=== PATIENT | female | born 1985 | race Caucasian/White ===

== ENCOUNTER 2017-08-01 14:20 | Emergency (ER) | payer MEDICARE ==
[2013-07-04 00:02] VITALS: BMI 40.8
[~2017-08-01 14:20] MED LIST: ACETAMINOPHEN500 M1 PO; BENADRYL25 M1 PO; MOTRIN800 MG PO; MYLANTA LIQUID355 ML PO; PERCOCET 10/3251 TA1 PO; PRENATAL COMPLE1 TAB PO
== END 2017-08-01 17:35 | disposition home or self-care (01) ==
LOC: D.ER 14:20
DX: L02.416 Cutaneous abscess of left lower limb (principal)

== ENCOUNTER 2017-12-15 11:12 | Emergency (ER) | payer MEDICARE ==
[2013-07-04 00:02] VITALS: BMI 40.8
[2017-12-15 11:53] LABS: BASOPHILS 0.2 % (0-2); HEMATOCRIT 37.6 % (36.0-48.0); HEMOGLOBIN 12.9 g/dL (12-16); IMMATURE GRANULOCYTES 0.2 % (0-5); LYMPHOCYTES 22.8 % (15-50); MCH 30.6 pg (26.0-34.0); MCHC 34.3 g/dL (31.0-37.0); MCV 89.3 fL (80.0-100.0); MEAN PLATELET VOLUME 9.6 fL (7.4-10.4); MONOCYTES 7.8 % (2-11); PLATELET COUNT 274 10x3/uL (130-400); RBC 4.21 10x6/uL (4.00-5.40); RDW 12.9 % (11.5-14.5)
[2017-12-15 12:03] LABS: APPEARANCE CLEAR (CLEAR); BILIRUBIN NEGATIVE (NEGATIVE); COLOR STRAW (YELLOW); GLUCOSE NEGATIVE (NEGATIVE); KETONE NEGATIVE (NEGATIVE); NITRITE NEGATIVE (NEGATIVE); PROTEIN NEGATIVE (NEGATIVE); UROBILINOGEN NORMAL (NORMAL)
[2017-12-15 12:10] LABS: ALBUMIN 3.5 g/dL (3.4-5.0); ALKALINE PHOSPHATASE 59 U/L (46-116); ALT (SGPT) 25 U/L (10-68); BILIRUBIN - TOTAL 0.18 mg/dL (0.2-1.3); CALC OSMOLALITY 274 mosm/kg (275-300); CALCIUM 8.9 mg/dL (8.5-10.1); CARBON DIOXIDE 28.9 mmol/L (21.0-32.0); CHLORIDE - SERUM 104 mmol/L (98-107); CREATININE - SERUM 0.7 mg/dL (0.6-1.3); GLUCOSE 85 mg/dL (74-106); POTASSIUM - SERUM 3.8 mmol/L (3.5-5.1); PROTEIN - SERUM 7.2 g/dL (6.4-8.2); SODIUM 139 mmol/L (136-145); UREA NITROGEN 8 mg/dL (7-18); eGFR NON AFRICAN AMERICAN > 90 mL/min (90-120)
[2017-12-15 12:32] LABS: HCG - QUANTITATIVE (MATERNAL) 8952 mIU/mL
== END 2017-12-15 15:04 | disposition home or self-care (01) ==
LOC: D.ER 11:12
PROVIDERS: Emergency Medicine
DX: O26.891 Other specified pregnancy related conditions, first trimester (principal); Z3A.09 9 weeks gestation of pregnancy; R10.9 Unspecified abdominal pain

== ENCOUNTER 2017-12-17 09:12 | Emergency (ER) | payer MEDICARE ==
[2013-07-04 00:02] VITALS: BMI 40.8
[2017-12-17 11:04] LABS: BASOPHILS 0.3 % (0-2); EOSINOPHILS 4.6 % (0-7); HEMOGLOBIN 13.6 g/dL (12-16); IMMATURE GRANULOCYTES 0.2 % (0-5); MCH 30.4 pg (26.0-34.0); MCV 89.5 fL (80.0-100.0); MONOCYTES 8.6 % (2-11); NEUTROPHILS 65.3 % (40-80); PLATELET COUNT 313 10x3/uL (130-400); RBC 4.47 10x6/uL (4.00-5.40); RDW 12.9 % (11.5-14.5)
[2017-12-17 13:15] LABS: APPEARANCE CLEAR (CLEAR); BILIRUBIN NEGATIVE (NEGATIVE); COLOR STRAW (YELLOW); GLUCOSE NEGATIVE (NEGATIVE); KETONE NEGATIVE (NEGATIVE); NITRITE NEGATIVE (NEGATIVE); PROTEIN NEGATIVE (NEGATIVE); SPECIFIC GRAVITY 1.005 (1.005-1.020); UROBILINOGEN NORMAL (NORMAL)
[2017-12-17 13:16] LABS: BACTERIA MODERATE /hpf (NONE SEEN); EPITHELIAL CELLS 0-5 /hpf (0-5); MUCUS <1+ /lpf (NONE SEEN); RED CELLS - URINE 0-5 /hpf (0-5); WHITE CELLS - URINE 0-5 /hpf (0-5)
== END 2017-12-17 13:40 | disposition home or self-care (01) ==
LOC: D.ER 09:12
PROVIDERS: Family Medicine
DX: O26.891 Other specified pregnancy related conditions, first trimester (principal); Z3A.09 9 weeks gestation of pregnancy; R10.30 Lower abdominal pain, unspecified

== ENCOUNTER 2018-01-31 05:30 | Day surgery (SDC) | payer MEDICARE ==
[2018-01-29 14:42] LABS: BASOPHILS 0.3 % (0-2); EOSINOPHILS 5.4 % (0-7); HEMATOCRIT 34.4 % (36.0-48.0); HEMOGLOBIN 11.5 g/dL (12-16); IMMATURE GRANULOCYTES 0.2 % (0-5); LYMPHOCYTES 28.2 % (15-50); MCH 29.3 pg (26.0-34.0); MCHC 33.4 g/dL (31.0-37.0); MCV 87.5 fL (80.0-100.0); MEAN PLATELET VOLUME 9.7 fL (7.4-10.4); MONOCYTES 7.4 % (2-11); NEUTROPHILS 58.5 % (40-80); PLATELET COUNT 358 10x3/uL (130-400); RBC 3.93 10x6/uL (4.00-5.40); RDW 12.5 % (11.5-14.5)
[~2018-01-31] VITALS: Ht 170.2 cm; Wt 108.9 kg
--- NOTE | ~2018-01-31 | OP ---
PATIENT NAME: SCOTTY KOTHARI MEDICAL RECORD: [id number] LOCATION:D[facility] ADMISSION DATE: SURGEON: WALDO EDWARD MD DATE OF OPERATION: 01/31/2018 PREOPERATIVE DIAGNOSES: 1. Multiparity. 2. The patient desires permanent sterility. POSTOPERATIVE DIAGNOSES: 1. Multiparity. 2. The patient desires permanent sterility. PROCEDURE: Laparoscopic tubal ligation via bipolar cautery. SURGEON: Waldo Edward MD ANESTHESIA: General endotracheal. INTRAVENOUS FLUIDS: Per anesthesia record. SPECIMENS: None. FINDINGS: 1. Grossly normal-appearing uterus. 2. Grossly normal-appearing fallopian tubes and ovaries. COMPLICATIONS: None apparent. PROCEDURE IN DETAIL: The patient was taken to the operating room where general anesthesia was achieved without difficulty. The patient was then prepped and draped in normal sterile fashion in the dorsal lithotomy position in the [facility]. The patient was then prepped and draped. Bladder drained of a small amount of clear urine and a sponge stick placed into the vagina for uterine elevation. At this point, attention was turned to the umbilicus where infraumbilically a 5-mm skin incision was made using an 11-blade and using the 5-mm bladeless trocar intraperitoneal placement was achieved under direct visualization of the laparoscope. The introducer was then removed. Intraperitoneal placement was confirmed by free entry of the laparoscope into the intraperitoneal space. The patient was then insufflated, opening pressure was found to be less than 10 mmHg. Brief survey of the abdomen and pelvis was performed and then a 5-mm skin incision was made approximately 5 cm above the pubic symphysis in the midline. A second 5-mm bladeless trocar was then used to enter the intraperitoneal space under direct visualization of the laparoscope. The fallopian tubes were identified, grasped in their midsection and completely cauterized using the bipolar cautery, a segment of approximately 5 to 6 cm. Good hemostasis was noted from both surgical sites. At this point, the instruments and laparoscope were then removed. The patient was desufflated and the trocars removed. The 2 laparoscopic incisions were then repaired with 3-0 Vicryl in an interrupted fashion. The patient tolerated procedure well, was transferred to postanesthesia recovery stable without incident. TRANSINT:[id number] Voice Confirmation ID: [id number] DOCUMENT ID: [id number] OPERATIVE REPORT [id number] SCOTTY KOTHARI, WALDO Tran MD at 1550 CC: [id number] DICTATION DATE: 02/16/18731 INTELLIGENCE CHIEF: 02/16/18820 [facility] [place] 01/31/18 [place] [id number] [place] [id number]
[2018-01-31 06:26] VITALS: BP 104/61; BMI 37.7
[2018-01-31 06:32] LABS: HCG URINE NEGATIVE (NEGATIVE)
[2018-01-31 06:42] VITALS: Ht 170.2 cm; Wt 108.9 kg
== END 2018-01-31 12:00 | disposition home or self-care (01) ==
LOC: D.OPS 05:30 → D.PAN 07:30 → D.OPS 09:00
PROVIDERS: Obstetrics & Gynecology
DX: Z30.2 Encounter for sterilization (principal); F41.9 Anxiety disorder, unspecified; F32.9 Major depressive disorder, single episode, unspecified; F17.200 Nicotine dependence, unspecified, uncomplicated; Z01.812 Encounter for preprocedural laboratory examination

== ENCOUNTER 2018-03-01 20:18 | Emergency (ER) | payer BC ==
[~2018-03-01] VITALS: Ht 170.2 cm; Wt 105.5 kg
[2018-03-01 20:33] VITALS: BP 122/94; Ht 170.2 cm; Wt 105.5 kg
[2018-03-01] MEDS ORDERED: CIPRO500 MG PO (20:34)
== END 2018-03-01 21:51 | disposition left against medical advice (07) ==
LOC: D.ER 20:18
DX: L02.31 Cutaneous abscess of buttock (principal)

== ENCOUNTER 2018-03-03 06:42 | Emergency (ER) | payer BC ==
[~2018-03-03] VITALS: Ht 170.2 cm; Wt 105.5 kg
[~2018-03-03 06:42] MED LIST changes: +CIPRO500 MG PO
[2018-03-03 06:45] VITALS: Ht 170.2 cm; Wt 105.5 kg
[2018-03-03] MEDS ORDERED: BACTRIM DS TABL1 TAB PO (08:24)
[2018-03-03] MEDS ORDERED: NORCO 7.5/325 T1 TA1 PO (08:24)
[2018-03-03 08:39] VITALS: BP 132/078
== END 2018-03-03 08:40 | disposition home or self-care (01) ==
LOC: D.ER 06:42
DX: L02.31 Cutaneous abscess of buttock (principal)

== ENCOUNTER 2018-06-02 12:37 | Emergency (ER) | payer BC ==
[~2018-06-02] VITALS: Ht 170.2 cm; Wt 104.5 kg
[~2018-06-02 12:37] MED LIST changes: +BACTRIM DS TABL1 TAB PO; +NORCO 7.5/325 T1 TA1 PO
[2018-06-02 12:39] VITALS: Ht 170.2 cm; Wt 104.5 kg
[2018-06-02 13:29] LABS: BASOPHILS 0.4 % (0-2); EOSINOPHILS 7.6 % (0-7); HEMATOCRIT 40.7 % (36.0-48.0); HEMOGLOBIN 13.6 g/dL (12-16); IMMATURE GRANULOCYTES 0.2 % (0-5); LYMPHOCYTES 30.7 % (15-50); MCH 28.5 pg (26.0-34.0); MCHC 33.4 g/dL (31.0-37.0); MCV 85.3 fL (80.0-100.0); MONOCYTES 7.6 % (2-11); NEUTROPHILS 53.5 % (40-80); PLATELET COUNT 360 10x3/uL (130-400); RBC 4.77 10x6/uL (4.00-5.40); RDW 14.4 % (11.5-14.5); WBC 9.4 10x3/uL (4.8-10.8)
[2018-06-02 13:37] LABS: APTT 30.1 SECONDS (22.8-39.4); INR 0.88 (0.85-1.17); PROTIME 11.6 SECONDS (11.6-15.0)
[2018-06-02 13:42] LABS: ALBUMIN 3.6 g/dL (3.4-5.0); ALKALINE PHOSPHATASE 76 U/L (46-116); ALT (SGPT) 24 U/L (10-68); BILIRUBIN - TOTAL 0.24 mg/dL (0.2-1.3); CALC OSMOLALITY 284 mosm/kg (275-300); CALCIUM 9.2 mg/dL (8.5-10.1); CARBON DIOXIDE 26.9 mmol/L (21.0-32.0); CHLORIDE - SERUM 107 mmol/L (98-107); CREATININE - SERUM 0.8 mg/dL (0.6-1.3); GLUCOSE 90 mg/dL (74-106); POTASSIUM - SERUM 3.9 mmol/L (3.5-5.1); PROTEIN - SERUM 7.5 g/dL (6.4-8.2); SODIUM 144 mmol/L (136-145); UREA NITROGEN 8 mg/dL (7-18); eGFR NON AFRICAN AMERICAN 88 mL/min (90-120)
[2018-06-02 13:54] LABS: CKMB 0.7 U/L (0.0-3.6); CREATINE KINASE 53 UL (21-215); MAGNESIUM - SERUM 2.2 mg/dL (1.8-2.4)
[2018-06-02 13:55] LABS: TROPONIN-I < 0.017 ng/mL (0.000-0.060)
[2018-06-02 15:08] VITALS: BP 118/82
== END 2018-06-02 15:08 | disposition home or self-care (01) ==
LOC: D.ER 12:37
PROVIDERS: Family Medicine
DX: R00.0 Tachycardia, unspecified (principal); R06.02 Shortness of breath; R42 Dizziness and giddiness; F17.200 Nicotine dependence, unspecified, uncomplicated